=== PATIENT | female | born 1985 | race Caucasian/White ===

== ENCOUNTER 2023-09-22 11:13 | Emergency (ER) | payer MEDICAID ==
[~2023-09-22] VITALS: Ht 162.6 cm; Wt 65.1 kg
[2023-09-22] MEDS ORDERED: ALBU6.7H14 INH (13:41)
[2023-09-22] MEDS ORDERED: AMOX-117 PO (13:41)
[2023-09-22 13:51] VITALS: BP 129/73; PULSE 78; RESP 16; TEMP 98.3; O2SAT 98
== END 2023-09-22 13:53 | disposition home or self-care (01) ==
LOC: ER 11:14
DX: J40 Bronchitis, not specified as acute or chronic (principal); Z20.822 Contact with and (suspected) exposure to COVID-19; Z88.0 Allergy status to penicillin; Z79.899 Other long term (current) drug therapy
CPT/HCPCS: 36415; 71045; 87811; 99284